=== PATIENT | male | born 1990 | race African-American/Black ===

== ENCOUNTER 2020-07-19 16:00 | Emergency (ER) | payer MEDICAID ==
[~2020-07-19] VITALS: Ht 167.6 cm; Wt 93.6 kg
--- NOTE | 2020-07-19 16:18 | NUR ---
PT BROUGHT BACK FROM TRIAGE FOR CHIEF COMPLAINT OF INTERMITTENT COUGH FOR ONE WEEK BUT "ONLY IN EVENINGS AND AT NIGHT" NO OTHER SYMPTOMS REPORTED. 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
--- NOTE | 2020-07-19 16:59 | NUR ---
ER PA AT BEDSIDE FOR EVALUATION.
--- NOTE | 2020-07-19 17:09 | NUR ---
X-RAY TECH AT BEDSIDE.
[2020-07-19 17:39] VITALS: BP 131/68
--- NOTE | 2020-07-19 17:57 | NUR ---
Discharge instructions provided.
[2020-07-19] MEDS ORDERED: DEXAMETHASONE 4 MG TABLET PO ONE (18:00)
[2020-07-19] MEDS ORDERED: DEXAMETHASONE 4 MG TABLET ONE (18:05)
--- NOTE | 2020-07-19 18:08 | NUR ---
Patient given discharge instructions, prescription and spacer and they have confirmed that they understand the instructions. All patient belongings gathered by patient. Patient ambulatory with steady gait.
== END 2020-07-19 18:10 | disposition home or self-care (01) ==
LOC: ED 17:54
DX: J45.909 Unspecified asthma, uncomplicated (principal); J70.5 Respiratory conditions due to smoke inhalation
CPT/HCPCS: 71045; 99283